=== PATIENT | female | born 1965 | race Caucasian/White ===

== ENCOUNTER → 2017-06-16 | Outpatient (CLI) | payer OTHER ==
--- NOTE | 2017-06-16 13:34 | DI ---
History: Palpable Neck mass Previous: None Findings: Ultrasound examination was performed over the left neck to evaluate a palpable lesion. The subcutaneous and muscular structures through this area are normal in appearance. No vascular anomalies are demonstrated No echogenic or anechoic soft tissue lesions are demonstrated. Impression: Unremarkable ultrasound examination of the left neck. There are no sonographically detectable lesions to explain palpable abnormality. If further evaluation is clinically indicated, CT scan of the neck with and without IV contrast could be performed
--- NOTE | 2017-06-16 16:24 | DI ---
History: Muscle weakness Comparison: None Findings: Multiple sequences were performed in multiple planes, through the wrist, and hand. Flexor and extensor tendons are intact. There is no abnormal marrow signal to indicate bone marrow contusion, edema, fracture. No destructive osseous lesions. Normal muscle/fat planes are preserved through the wrist and hand. There are no foci of inflammation. There are no sequestered fluid collections. No gross abnormalities are demonstrated in the carpal tunnel. Evaluation is somewhat limited due to m otion artifact. Impression: Unremarkable MRI of the hand
== END ==
LOC: US 12:20
PROVIDERS: ATTEND Internal Medicine
DX: M62.81 Muscle weakness (generalized) (principal); R22.1 Localized swelling, mass and lump, neck
CPT/HCPCS: 73220; 76536